=== PATIENT | male | born 1965 | race Caucasian/White ===

== ENCOUNTER 2020-06-01 01:19 | Outpatient (CLI) | payer OTHER, SELFPAY ==
[2020-06-01 18:06] LABS: SARS-CoV-2 RNA PCR Negative
== END 2020-06-01 01:20 | disposition home or self-care (01) ==
LOC: ANHCOVIDDT 01:20
PROVIDERS: PCP Internal Medicine; Visit Provider Internal Medicine Gastroenterology
DX: Z01.812 Encounter for preprocedural laboratory examination (principal); Z20.828 Contact with and (suspected) exposure to other viral communicable diseases
CPT/HCPCS: 87635; C9803; U0003

== ENCOUNTER 2020-06-03 00:50 | Day surgery (SDC) | payer OTHER, SELFPAY ==
[2020-04-26 13:58] VITALS: BMI 27.4
[2020-05-31 13:14] VITALS: BMI 27.4
[2020-06-03 10:46] VITALS: BP 134/92; PULSE 98; RESP 16; TEMP 36.2; O2SAT 97
[2020-06-03] MEDS: LACTATED RINGERS 1,000 ML 150 ML IV CONT (10:54)
--- NOTE | 2020-06-03 11:02 | P.PNAN_ITS ---
Anes - Initial Pre Proc Eval Procedure: Operation Date: 06/03/20 11:45 Proposed Procedures p Screening Colonoscopy - Moisés Delgado MD Date/Time: 06/03/20 11:02 Surgeon: Moisés Delgado MD Pre Op Diagnosis: neoplasm screening Patient Data Age: 54 Gender: M Height: 6 ft 1 in Weight: 94.4 kg Last Vital Signs Temp 36.2 C L 06/03/20 10:46 Pulse 98 06/03/20 10:46 Resp 16 06/03/20 10:46 BP 134/92 H 06/03/20 10:46 Pulse Ox 97 06/03/20 10:46 Allergies Allergy/AdvReac Type Severity Reaction Status Date / Time No Known Allergies Allergy Verified 06/03/20 10:44 Home Medications Medication Instructions Recorded Confirmed Type amlodipine 5 mg PO DAILY 04/26/20 04/26/20 History escitalopram oxalate 20 mg PO DAILY 04/26/20 04/26/20 History insulin lispro [Humalog U-100 60 unit SUBCUT DAILY 04/26/20 04/26/20 History Insulin] lisinopril 10 mg PO DAILY 04/26/20 04/26/20 History rosuvastatin 40 mg PO DAILY 04/26/20 04/26/20 History aspirin [Adult Low Dose Aspirin] 81 mg PO DAILY 05/31/20 05/31/20 History Patient hx anesthesia problems: none Family hx [facility] problems: none [facility] Past Medical History Medical History (Updated 06/03/20 @ 11:03 by Terrence Ruggiero MD) Depression Diabetes HTN (hypertension) Hyperlipidemia Surgical History Surgical History (Updated 06/03/20 @ 11:05 by Terrence Ruggiero MD) History of appendectomy Social History Social History Smoking packs per day: 1 Smoking cigarettes per day: 20.0 Years smoked: 8 Smoking pack-years: 8.00 Smoking status: Former smoker Tobacco type: cigarettes Alcohol intake: never Substance use: never Substance use type: does not use Living arrangements: with family Spiritual care concerns: No Anes - Eval Final PreProcedure Day of Procedure 06/03/20 11:02 Patient weight: overweight Heart: regular rate and rhythm Lungs: clear to auscultation Airway: Mallampati scale class II Neurological: alert and oriented Last oral intake: >/= 8 hours ASA classification: III Emergent: no Anesthetic plan: proceed Anesthesia type and monitoring: general GIVS and standard monitoring Informed Consent: The patient's anesthetic plan and its attendant risks and benefits were discussed with the patient/family/POA. Questions were solicited and answers provided to the satisfaction of the patient/family/POA.
--- NOTE | 2020-06-03 11:11 | PM.HPGS ---
History of Present Illness History of Present Illness Consent: Risks, benefits, and alternatives have been discussed and questions answered. Patient agrees to proceed with procedure. Chief complaint: neoplasm screening Narrative: Rodrigo Butler Jr. is a 54 year old male here for screening colonoscopy, last one 7 years ago. Review of Systems Constitutional: Constitutional: Denies headache(s) and Denies weakness Eyes: Eyes: Denies blurry vision ENT: Reports Normal hearing present, Denies headache(s) and Denies neck pain Cardiovascular: Cardiovascular: Denies chest pain and Denies dyspnea Respiratory: Respiratory: Denies dyspnea Gastrointestinal: Gastrointestinal: Reports no additional gastrointestinal complaints Genitourinary: Genitourinary: Denies dysuria Musculoskeletal: Musculoskeletal: Denies neck pain Integumentary/Breasts: Skin/Breast: Denies dry skin Neurologic: Reports Normal hearing present, Denies headache(s) and Denies weakness Psychiatric: Psychiatric: Denies anxiety Endocrine: Endocrine: Denies change in body appearance Hematologic/Lymphatic: Hematologic/Lymphatic: Denies easy bleeding Allergic/Immunologic: Allergic/Immunologic: Denies urticaria PMFSH Past Medical History Medical History (Updated 06/03/20 @ 11:12 by Moisés Delgado MD) Colon cancer screening Depression Diabetes HTN (hypertension) Hyperlipidemia Surgical History Surgical History (Updated 06/03/20 @ 11:05 by Terrence Ruggiero MD) History of appendectomy Social History Social History Smoking packs per day: 1 Smoking cigarettes per day: 20.0 Years smoked: 8 Smoking pack-years: 8.00 Smoking status: Former smoker Tobacco type: cigarettes Alcohol intake: never Substance use: never Substance use type: does not use Living arrangements: with family Spiritual care concerns: No Meds Home Medications and Allergies Home Medications Medication Instructions Recorded Confirmed Type amlodipine 5 mg PO DAILY 04/26/20 04/26/20 History escitalopram oxalate 20 mg PO DAILY 04/26/20 04/26/20 History insulin lispro [Humalog U-100 60 unit SUBCUT DAILY 04/26/20 04/26/20 History Insulin] lisinopril 10 mg PO DAILY 04/26/20 04/26/20 History rosuvastatin 40 mg PO DAILY 04/26/20 04/26/20 History aspirin [Adult Low Dose Aspirin] 81 mg PO DAILY 05/31/20 05/31/20 History Allergies Allergy/AdvReac Type Severity Reaction Status Date / Time No Known Allergies Allergy Verified 06/03/20 10:44 Vital Signs Vital Signs - 24 hr 06/03/20 10:46 Temperature 97.2 F L Pulse Rate 98 Respiratory Rate 16 Blood Pressure 134/92 H Pulse Oximetry 97 Exam Const: General: comfortable and no acute distress HENMT: General nose exam: Normal nares present Eyes: General: appearance normal, both eyes and all related structures Neck: Neck: no JVD Resp: Auscultation: clear to auscultation bilaterally Cardio: Rate: regular rate Rhythm: regular rhythm GI: Inspection: non-distended GI Palp: Yes Soft to palpation Skin: General skin exam: normal color Neuro: General: gait normal Speech: normal speech Extrem: General: normal to inspection Psych: Mental Status: mental status grossly normal Assessment and Plan Assessment and plan (1) Colon cancer screening: Code(s): Z12.11 - Encounter for screening for malignant neoplasm of colon Status: Acute Assessment and Plan: will proceed with colonoscopy
[2020-06-03 11:36] VITALS: BP 113/78; PULSE 85; RESP 11; O2SAT 95
[2020-06-03 11:46] VITALS: BP 113/79; PULSE 87; RESP 12; O2SAT 96
[2020-06-03 11:59] LABS: Glucose Point of Care 188 (65-105)
== END 2020-06-03 12:07 | disposition home or self-care (01) ==
PROVIDERS: PCP Internal Medicine; Visit Provider Internal Medicine Gastroenterology
PROC: 0DJD8ZZ Inspection of Lower Intestinal Tract, Via Natural or Artificial Opening Endoscopic (ICD-10-PCS; CPT 45378; principal; 2020-06-03 11:45)
DX: Z12.11 Encounter for screening for malignant neoplasm of colon (principal); F32.9 Major depressive disorder, single episode, unspecified; K57.30 Diverticulosis of large intestine without perforation or abscess without bleeding; I10 Essential (primary) hypertension; E11.9 Type 2 diabetes mellitus without complications; Z87.891 Personal history of nicotine dependence
CPT/HCPCS: 45378; J2704; J7120

== ENCOUNTER 2020-06-06 08:38 | Outpatient (CLI) | payer OTHER, SELFPAY ==
[2020-06-06 09:07] LABS: Basophils Absolute Auto 0.1 K/mm3 (0.0-0.1); Basophils Percent Auto 1.2 % (0.2-1.2); Eosinophils Absolute Auto 0.2 K/mm3 (0-0.3); Eosinophils Percent Auto 4.1 % (0-4.4); Hematocrit 43.3 % (42.0-52.0); Hemoglobin 14.9 g/dL (14.0-18.0); Immature Granulocyte Absolute 0.01 K/mm3 (0.00-0.031); Immature Granulocyte Percent A 0.2 % (0-0.5); Lymphocytes Absolute Auto 1.76 K/mm3 (0.9-3.2); Lymphocytes Percent Auto 34.6 % (18.3-44.2); Mean Corpuscular HGB Conc 34.4 g/dl (32-36); Mean Corpuscular Hemoglobin 29.3 pg (26-34); Mean Corpuscular Volume 85.1 fl (80-100); Mean Platelet Volume 10.2 fl (7.4-10.4); Monocytes Absolute Auto 0.7 K/mm3 (0.1-0.6); Monocytes Percent Auto 12.8 % (2.6-8.5); Neutrophils Absolute Auto 2.4 K/mm3 (1.3-6.7); Neutrophils Percent Auto 47.1 % (45.5-73.1); Platelet Count Result 225 k/mm3 (150-375); Red Blood Count 5.09 M/mm3 (4.6-6.20); Red Cell Distribution Width 12.2 % (11.5-14.5); White Blood Count 5.1 K/mm3 (4.5-10.0)
[2020-06-06 09:15] LABS: Hemoglobin A1C 7.4 % (<5.7)
[2020-06-06 09:20] LABS: Alanine Aminotransferase 42 U/L (4-50); Albumin Level 4.4 g/dL (3.5-5.1); Alkaline Phosphatase 104 U/L (38-126); Anion Gap 7 mmol/L (8-16); Aspartate Amino Transferase 46 U/L (17-59); Bilirubin,Total 0.4 mg/dL (0.2-1.3); Blood Urea Nitrogen 17 mg/dL (9-20); Calcium 9.1 mg/dL (8.4-10.2); Carbon Dioxide 27 mmol/L (22-30); Chloride 105 mmol/L (98-107); Cholesterol 146 mg/dL (0-200); Creatine Kinase 263 U/L (55-170); Estimated Glomerular Filt Rate > 60; Glucose 132 mg/dL (75-110); HDL Direct 66 mg/dL; Sodium 139 mmol/L (137-145); Triglycerides 76 mg/dL (<150); Uric Acid 3.8 mg/dL (3.5-8.5)
[2020-06-06 09:21] LABS: Add Urine Microscopic? NO; Appearance Urine Clear (Clear); Bilirubin Urine Negative (Negative); Blood Urine Negative (Negative); Color Urine Yellow (Yellow); Glucose Urine UA Negative (Negative); Ketones Urine Negative (Negative); Leukocyte Esterase Ur Negative LEU/UL (Negative); Mucus Urine Rare /lpf; Nitrate Urine Negative (Negative); Protein Urine Negative (Negative); RBC Urine 0-2 /hpf (0-2); Specific Grav Ur 1.017 (1.001-1.035); Urobilinogen Urine Negative mg/dL (<2.0); WBC Urine 0-3 /hpf
[2020-06-06 09:31] LABS: LDL Cholesterol Direct 62 mg/dL
[2020-06-06 10:44] LABS: Vitamin D 25 Hydroxy 50.8 ng/mL
== END 2020-06-06 08:39 | disposition home or self-care (01) ==
PROVIDERS: PCP Internal Medicine; Visit Provider Internal Medicine
DX: E78.2 Mixed hyperlipidemia (principal); E10.9 Type 1 diabetes mellitus without complications; I10 Essential (primary) hypertension
CPT/HCPCS: 36415; 80053; 80061; 81003; 82306; 82550; 83036; 84443; 84550; 85025

== ENCOUNTER 2021-02-07 08:34 | Outpatient (CLI) | payer OTHER, SELFPAY ==
--- NOTE | 2021-03-07 06:00 | WPDHOMESLEEP ---
Sleep Study - Home Unattended Date of Study: 02/07/21 Ordering Provider: Toney Carney, Interpreting Provider: Marybel Kilpatrick MD Home Sleep Study Type: Watch PAT Height: 1.83 m Weight: 90.718 kg Body Mass Index: 27.1 Neck Circumference (inches): 16 [place]: 6 Reason for Sleep Study difficulty staying asleep, loud snoring Sleep History Rodrigo Butler Jr. is a 55 year old man with a history of loud snoring and difficulty staying asleep. he frequently awakens at night with heartburn, belching or coughing. He frequently snores loudly. He occasionally has trouble sleeping with a cold. He does not wake up gasping for breath at night. He occasionally has breathing problems at night observed by others. He does not sweat excessively at night or notice his heart pounding or beating irregularly at night. He occasionally falls asleep during the day, never involuntarily and never while driving. He does not have loss of muscle tone with strong emotion. He rarely has daytime difficulties due to excessive sleepiness, he has a senior financial consultant. He rarely feels paralyzed on waking or falling asleep. He occasionally has vivid dreamlike scenes upon awakening or falling asleep. He is not afraid to go to sleep. He rarely has nightmares. He frequently remembers his dreams, frequently has racing thoughts. He frequently feels sad or depressed. He occasionally has anxiety. He occasionally has muscular tension and occasionally notices parts of his body jerking. He rarely kicks at night. He occasionally has crawling and aching feelings in his legs. He does not have any kind of leg pain at night. He rarely has morning jaw pain. He does not grind his teeth during sleep. He occasionally is bothered by pain during the day. He is not awakened by pain at night. He occasionally wakes up feeling stiff in the morning. He rarely wakes up with sore or achy muscles rarely wakes up with pain in the neck and spine. He has fatigue, sexual problems, depression, insomnia and poor home conditions. Only on occasion does he awaken feeling refreshed. He rarely has a morning headache. He does not have a fixed bedtime. When he goes to sleep, it takes him 15 minutes to fall asleep. He typically wakes 3 times during the night. These awakenings can occur at any time during the night but usually occur 1-2 hours after going to sleep. He wakes in the morning by 7:00 a.m during the week and on the weekends, he wakes by 8:00 a.m. He estimates getting between 4 and 7 hours of sleep at night. he sometimes takes a nap in the afternoon or evening. A short nap may be refreshing. He is usually drowsy in the morning for 1 hour or longer. He feels better in the morning compared to other times of day. Habits: quit tobacco 15 years ago. He does consume caffeine. No alcohol or recreational drugs. FOR[facility]LY [facility] Past Medical History Medical History (Updated 03/07/21 @ 06:48 by Marybel Kilpatrick MD) Arthritis Colon cancer screening Depression Diabetes GERD (gastroesophageal reflux disease) HTN (hypertension) Hyperlipidemia Surgical History Surgical History (Updated 06/03/20 @ 11:05 by Terrence Ruggiero MD) History of appendectomy Social History Social History Smoking packs per day: 1 Smoking cigarettes per day: 20.0 Years smoked: 8 Smoking pack-years: 8.00 Smoking status: Former smoker Tobacco type: cigarettes Alcohol intake: never Substance use: never Substance use type: does not use Spiritual care concerns: No Medications Home Medications Medication Instructions Recorded Confirmed Type amlodipine 5 mg PO DAILY 04/26/20 04/26/20 History escitalopram oxalate 20 mg PO DAILY 04/26/20 04/26/20 History insulin lispro [Humalog U-100 60 unit SUBCUT DAILY 04/26/20 04/26/20 History Insulin] lisinopril 10 mg PO DAILY 04/26/20 04/26/20 History rosuvastatin 40 mg PO DAILY 04/26/20 1
[2021-03-07 06:03] VITALS: BMI 27.1
== END 2021-02-09 15:45 | disposition home or self-care (01) ==
LOC: ANHCSM 08:34
PROVIDERS: PCP Internal Medicine; Visit Provider Internal Medicine
DX: G47.33 Obstructive sleep apnea (adult) (pediatric) (principal)
CPT/HCPCS: 95800

== ENCOUNTER 2022-10-15 10:52 | Outpatient (CLI) | payer OTHER, SELFPAY ==
[2022-10-15 11:09] LABS: Hematocrit 47.9 % (42.0-52.0); Hemoglobin 15.9 g/dL (14.0-18.0); Mean Corpuscular HGB Conc 33.2 g/dl (32-36); Mean Corpuscular Hemoglobin 28.6 pg (26-34); Mean Corpuscular Volume 86.2 fl (80-100); Mean Platelet Volume 9.9 fl (7.4-10.4); Platelet Count Result 255 k/mm3 (150-375); Red Blood Count 5.56 M/mm3 (4.6-6.20); Red Cell Distribution Width 13.4 % (11.5-14.5); White Blood Count 4.7 K/mm3 (4.5-10.0)
[2022-10-15 11:19] LABS: Alanine Aminotransferase 42 U/L (6-50); Albumin Level 4.5 g/dL (3.5-5.1); Alkaline Phosphatase 113 U/L (38-126); Anion Gap 6 mmol/L (8-16); Aspartate Amino Transferase 43 U/L (17-59); Bilirubin,Total 0.6 mg/dL (0.2-1.3); Blood Urea Nitrogen 16 mg/dL (9-20); Calcium 9.2 mg/dL (8.4-10.2); Carbon Dioxide 27 mmol/L (22-30); Chloride 100 mmol/L (98-107); Estimated Glomerular Filt Rate > 60; Glucose 188 mg/dL (65-110); Potassium 4.7 mmol/L (3.4-5.0); Sodium 133 mmol/L (137-145); Uric Acid 3.2 mg/dL (3.5-8.5)
[2022-10-15 11:51] LABS: Prostate Specific Antigen 0.6 ng/mL (< OR = 4.0); Thyroid Stimulating Hormone < 0.015 uIU/mL (0.465-4.680)
[2022-10-15 12:08] LABS: Creatinine Urine 19.4 mg/dL
[2022-10-15 12:11] LABS: Microalbumin Urine Random < 6.0 mg/L (0-16.7)
[2022-10-21 15:49] LABS: Testosterone Free 115.5 pg/mL (35.0-155.0); Testosterone Total 849 ng/dL (250-1100)
== END 2022-10-15 10:53 | disposition home or self-care (01) ==
LOC: ANHLAB 10:55
PROVIDERS: PCP Nurse Practitioner Family; Visit Provider Nurse Practitioner Family
DX: I10 Essential (primary) hypertension (principal); M25.40 Effusion, unspecified joint; M79.676 Pain in unspecified toe(s); E78.5 Hyperlipidemia, unspecified; N48.6 Induration penis plastica; N52.9 Male erectile dysfunction, unspecified; E11.9 Type 2 diabetes mellitus without complications; F32.9 Major depressive disorder, single episode, unspecified
CPT/HCPCS: 36415; 80053; 82043; 84153; 84402; 84403; 84443; 84550; 85027; G0103

== ENCOUNTER 2023-02-26 08:37 | Outpatient (CLI) | payer OTHER, SELFPAY ==
--- NOTE | ~2023-02-26 | XR_ITS ---
Left Knee Technique: AP and lateral views were obtained. Clinical History: Pain Findings: No fracture or dislocation is seen. Osseous alignment is anatomic. Joint spaces are preserv ed without degenerative or erosive change. Soft tissues are unremarkable. No joint effusion is seen. Impression: Unremarkable left knee radiographs. Reviewed, dictated and finalized at location . Impression: Unremarkable left knee radiographs.
--- NOTE | ~2023-02-26 | XR_ITS ---
Right foot Technique: AP, oblique, and lateral views were obtained. Clinical History: Pain swelling Findings: No acute fracture or dislocation is seen. There is advanced osteoarthritic change at the fi rst MTP joint. Remaining joint spaces are preserved. Soft tissues are unremarkable. Impression: Advanced osteoarthritic change at the first MTP joint. Reviewed, dictated and finalized at location . Impression: Advanced osteoarthritic change at the first MTP joint.
[2023-02-26 10:31] LABS: Cholesterol 186 mg/dL (0-200); HDL Direct 59 mg/dL; Sodium 137 mmol/L (137-145); Triglycerides 92 mg/dL (<150)
[2023-02-26 10:44] LABS: LDL Cholesterol Direct 94 mg/dL
[2023-02-26 11:24] LABS: Thyroid Stimulating Hormone < 0.015 uIU/mL (0.465-4.680)
[2023-02-26 11:26] LABS: T4 Thyroxine 8.92 ug/dL (5.53-11.0)
== END 2023-02-26 08:38 | disposition home or self-care (01) ==
LOC: ANHLAB 08:39
PROVIDERS: PCP Family Medicine; Visit Provider Nurse Practitioner Family
DX: M79.674 Pain in right toe(s) (principal); M25.562 Pain in left knee; E78.5 Hyperlipidemia, unspecified; E87.1 Hypo-osmolality and hyponatremia; R79.89 Other specified abnormal findings of blood chemistry; M19.071 Primary osteoarthritis, right ankle and foot
CPT/HCPCS: 36415; 73560; 73630; 80061; 84295; 84436; 84443

== ENCOUNTER 2023-08-12 07:04 | Outpatient (CLI) | payer OTHER, SELFPAY ==
--- NOTE | ~2023-08-12 | NM_ITS ---
NM thyroid scan w uptake 08/13/2023 08:18 [employer] INDICATION: Abnormal thyroid chemistries. TECHNIQUE: Following intravenous administration of 0.518 millicuries 123 sodium iodide, multiple imag es of the thyroid gland were obtained. The 24-hour thyroid uptake value was obtained. COMPARISON: No prior studies for comparison. FINDINGS: The images demonstrate normal configuration of the thyroid gland and homogeneous distributi on of the radionuclide. No focal areas of increased or decreased activity are identified. 24 hour thyroid uptake is 23.8%, which is within the normal range of 7-30%. There is symmetric uptake in both lobes. IMPRESSION: 1: Normal thyroid scan. 2: Normal 24 hour iodine- 123 uptake. Reviewed, dictated and finalized at location [employer]. [employer]
[2023-08-12 07:44] LABS: Cholesterol 159 mg/dL (0-200); HDL Direct 49 mg/dL; Triglycerides 95 mg/dL (<150)
[2023-08-12 07:55] LABS: Hemoglobin A1C 7.5 % (<5.7); LDL Cholesterol Direct 86 mg/dL
[2023-08-12 08:07] LABS: Free T4 Free Thyroxine 1.38 ng/mL (0.78-2.19)
[2023-08-12 08:15] LABS: Thyroid Stimulating Hormone < 0.015 uIU/mL (0.465-4.680); Total Triiodothyronine (T3) 2.09 NG/ML (0.97-1.69)
[2023-08-14 12:28] LABS: Thyrotropin Receptor Antibody 1.52 IU/L (<=2.00)
[2023-08-14 14:10] LABS: Thyroid Stimulating Immunoglob 295 % baseline (<140)
[2023-08-15 01:50] LABS: Thyroid Peroxidase Antibodies 4 IU/mL (<9)
[2023-08-15 14:30] LABS: C-Peptide <0.10 ng/mL (0.80-3.85)
[2023-08-16 19:51] LABS: Glutamic acid decarboxylase AA 23 IU/mL (<5)
== END 2023-08-12 07:05 | disposition home or self-care (01) ==
LOC: ANHIMG 07:04
PROVIDERS: PCP Family Medicine; Visit Provider Internal Medicine
DX: R79.89 Other specified abnormal findings of blood chemistry (principal); E11.9 Type 2 diabetes mellitus without complications
CPT/HCPCS: 36415; 78014; 80061; 83036; 83519; 84439; 84443; 84445; 84480; 84681; 86341; 86376; A9516

== ENCOUNTER 2023-11-26 13:42 | Outpatient (CLI) | payer OTHER, SELFPAY ==
[2023-11-26 14:36] LABS: Free T4 Free Thyroxine 0.88 ng/mL (0.78-2.19)
[2023-11-26 14:41] LABS: Total Triiodothyronine (T3) 1.45 NG/ML (0.97-1.69)
== END 2023-11-26 13:43 | disposition home or self-care (01) ==
LOC: ANHLAB 13:44
PROVIDERS: PCP Family Medicine; Visit Provider Internal Medicine
DX: E10.8 Type 1 diabetes mellitus with unspecified complications (principal)
CPT/HCPCS: 36415; 84439; 84480